=== PATIENT | female | born 1980 | race Caucasian/White ===

== ENCOUNTER 2023-02-26 12:01 | Emergency (ER) | payer OTHER, SELFPAY ==
[2023-02-26 12:05] VITALS: BP 118/66; PULSE 73; RESP 18; TEMP 36.4; O2SAT 100
--- NOTE | 2023-02-26 12:05 | ECG_ITS ---
Measurements Intervals [place] Rate: 72 P: 56 OK: 119 QRS: 47 QRSD: 108 T: 21 QT: 392 QTc: 432 Interpretive Statements SINUS RHYTHM WITH SHORT OK INTERVAL INCOMPLETE RIGHT BUNDLE BRANCH BLOCK BORDERLINE T WAVE ABNORMALITY- INFERIOR LEADS BASELINE ARTIFACT- I, II, V4-V6 BORDERLINE ECG NO PREVIOUS ECG AVAILABLE FOR COMPARISON Electronically Signed On 02-26-2023 12:50:14 ELECTRIC SERVICEMAN by Ricardo Fink D.O.
--- NOTE | 2023-02-26 12:41 | ED.GENADULT ---
HPI - General Adult General Chief complaint: Arrhythmia/Palpitations <Henna Vasquez June SHEET PILE DRIVER OPERATOR - Last Filed: 02/26/23 12:44> Stated complaint: irregular hr <Henna Vasquez June SHEET PILE DRIVER OPERATOR - Last Filed: 02/26/23 12:44> Time Seen by Provider: 02/26/23 16:16 <Henna Vasquez June SHEET PILE DRIVER OPERATOR - Last Filed: 02/26/23 12:44> History of Present Illness HPI narrative: Renee Almanzar is a 42 y/o female she sees Dr. De La Cruz for OB, hx of AFib at the end of the last three pregnancies, she is currently 20 weeks and reports of having symptoms of Afib that started Sunday and Sunday, with palpations/ shortness of breath and headache. Not on any daily medications. <Henna Vasquez June SHEET PILE DRIVER OPERATOR - Last Filed: 02/26/23 12:44> Renee Almanzar is a 42 y/o female she sees Dr. De La Cruz for OB, hx of AFib at the end of the last three pregnancies, she is currently 20 weeks and reports of having symptoms of Afib that started Sunday and Sunday, with palpations/ shortness of breath and headache. Not on any daily medications. She did have some coffee Sunday morning. No chest pain chest pressure. <Augustine Simmons MD - Last Filed: 02/26/23 17:39> Review of Systems Review of Systems: All systems reviewed & are unremarkable except as noted in HPI and below <Augustine Simmons MD - Last Filed: 02/26/23 17:39> Constitutional: Constitutional: Reports no additional constitutional complaints <Augustine Simmons MD - Last Filed: 02/26/23 17:39> ENT: Reports system reviewed and no additional complaints, except as documented <Augustine Simmons MD - Last Filed: 02/26/23 17:39> Cardiovascular: Cardiovascular: Denies chest pain, Reports rapid heart rate and Denies radiating jaw, neck or arm pain <Augustine Simmons MD - Last Filed: 02/26/23 17:39> Respiratory: Respiratory: Reports no additional respiratory complaints <Augustine Simmons MD - Last Filed: 02/26/23 17:39> Musculoskeletal: Musculoskeletal: Reports no additional musculoskeletal complaints <Augustine Simmons MD - Last Filed: 02/26/23 17:39> PMFSH Past Medical History Medical History: Medical History (Updated 02/26/23 @ 17:37 by Augustine Simmons MD) Atrial fibrillation related <Henna Hogan APRN - Last Filed: 02/26/23 12:44> Surgical History Surgical History: Surgical History (Updated 02/26/23 @ 17:37 by Augustine Simmons MD) No pertinent past surgical history <Henna Hogan APRN - Last Filed: 02/26/23 12:44> Exam Narrative: GENERAL: Well-appearing, well-nourished, and in no acute distress. HEAD: Normocephalic, atraumatic. ENT: Mucous membranes moist. CHEST: Clear to auscultation. No respiratory distress. HEART: Regular rate and rhythm. Normal peripheral pulses. EXTREMITIES: Normal range of motion. No edema. SKIN: Warm, dry, no rash. NEURO: Alert and oriented x3. PSYCH: Normal mood and affect. <Augustine Simmons MD - Last Filed: 02/26/23 17:39> Course Course Emergency Course: Patient informed of results. Discussed case with her OB. Recommend follow-up in 2 days or they can discuss possible referral for Holter monitoring or cardiology. Review of patient's apple watch shows PVCs. EKG here showed a normal sinus rhythm. Nonspecific elevation of white blood cell count. <Augustine Simmons MD - Last Filed: 02/26/23 17:39> Vital Signs Vital signs: Vital Signs Temperature 97.6 F 02/26/23 12:05 Pulse Rate 73 02/26/23 12:05 Respiratory Rate 18 02/26/23 12:05 Blood Pressure 118/66 02/26/23 12:05 Pulse Oximetry 100 02/26/23 12:05 Temperature 97.6 F 02/26/23 12:05 Pulse Rate 69 02/26/23 16:11 Respiratory Rate 16 02/26/23 16:11 Blood Pressure 134/81 02/26/23 16:11 Pulse Oximetry 100 02/26/23 16:11 <Henna Hogan APRN - Last Filed: 02/26/23 12:44> Vital Signs Temperature 97.6 F 02/26/23 12:05 Pulse Rate 73 02/26/23 12:05 Respiratory Rate 18 02/26/23 12
[2023-02-26 14:46] LABS: Basophils Absolute Auto 0.1 K/mm3 (0.0-0.1); Basophils Percent Auto 0.8 % (0.2-1.2); Eosinophils Absolute Auto 0.1 K/mm3 (0-0.3); Hematocrit 36.9 % (37.0-47.0); Hemoglobin 12.2 g/dL (12.0-15.0); Immature Granulocyte Absolute 0.45 K/mm3 (0.00-0.031); Immature Granulocyte Percent A 3.2 % (0-0.5); Lymphocytes Absolute Auto 1.89 K/mm3 (0.9-3.2); Lymphocytes Percent Auto 13.4 % (18.3-44.2); Mean Corpuscular HGB Conc 33.1 g/dl (32-36); Mean Corpuscular Hemoglobin 31.2 pg (26-34); Mean Corpuscular Volume 94.4 fl (80-100); Monocytes Percent Auto 6.9 % (2.6-8.5); Neutrophils Absolute Auto 10.6 K/mm3 (1.3-6.7); Neutrophils Percent Auto 74.7 % (45.5-73.1); Platelet Count Result 258 k/mm3 (150-375); Red Blood Count 3.91 M/mm3 (4.2-5.4); Red Cell Distribution Width 13.4 % (11.5-14.5); White Blood Count 14.1 K/mm3 (4.5-10.0)
[2023-02-26 14:47] LABS: Appearance Urine Clear (Clear); Bilirubin Urine Negative (Negative); Blood Urine Negative (Negative); Color Urine Yellow (Yellow); Glucose Urine UA Negative (Negative); Ketones Urine Negative (Negative); Leukocyte Esterase Ur Negative LEU/UL (Negative); Nitrate Urine Negative (Negative); Protein Urine Negative (Negative); Urobilinogen Urine 0.2 mg/dL (<2.0); pH Urine 7.5 (5.0-9.0)
[2023-02-26 14:56] LABS: Add Urine Microscopic? NO
[2023-02-26 14:58] LABS: Alanine Aminotransferase 14 U/L (6-35); Albumin Level 3.6 g/dL (3.5-5.1); Alkaline Phosphatase 87 U/L (38-126); Anion Gap 7 mmol/L (8-16); Aspartate Amino Transferase 16 U/L (14-36); Bilirubin,Total 0.3 mg/dL (0.2-1.3); Blood Urea Nitrogen 5 mg/dL (7-17); Calcium 8.4 mg/dL (8.4-10.2); Carbon Dioxide 24 mmol/L (22-30); Chloride 105 mmol/L (98-107); Estimated CRCL calculation 103 ml/min; Estimated Glomerular Filt Rate > 60; Glucose 89 mg/dL (65-110); Potassium 3.7 mmol/L (3.4-5.0); Sodium 136 mmol/L (137-145)
[2023-02-26 15:10] LABS: Troponin I < 0.012 ng/mL (0.000-0.034)
[2023-02-26 16:11] VITALS: BP 134/81; PULSE 69; RESP 16; O2SAT 100
[2023-02-26 18:05] VITALS: BP 113/71; PULSE 80; RESP 18; O2SAT 100
== END 2023-02-26 18:06 | disposition home or self-care (01) ==
PROVIDERS: Nurse Practitioner Family; Emergency Provider Emergency Medicine; PCP Obstetrics & Gynecology
DX: O99.412 Diseases of the circulatory system complicating pregnancy, second trimester (principal); I49.3 Ventricular premature depolarization; Z3A.20 20 weeks gestation of pregnancy; I45.10 Unspecified right bundle-branch block; R94.31 Abnormal electrocardiogram [ECG] [EKG]
CPT/HCPCS: 36415; 80053; 81003; 84484; 85025; 93005; 99284

== ENCOUNTER 2023-07-12 03:30 | Inpatient (IN) | payer OTHER, SELFPAY ==
[2023-07-12] VITALS (41 sets, daily range): BP systolic 99–154; BP diastolic 37–96; PULSE 64–137; RESP 16–18; TEMP 36.7–37.1; O2SAT 92–100; BMI 32.8; BMI 32.4
[2023-07-12 04:06] LABS: Basophils Absolute Auto 0.1 K/mm3 (0.0-0.1); Basophils Percent Auto 0.8 % (0.2-1.2); Eosinophils Absolute Auto 0.2 K/mm3 (0-0.3); Eosinophils Percent Auto 1.2 % (0-4.4); Hematocrit 35.3 % (37.0-47.0); Hemoglobin 11.3 g/dL (12.0-15.0); Immature Granulocyte Absolute 0.57 K/mm3 (0.00-0.031); Immature Granulocyte Percent A 3.7 % (0-0.5); Lymphocytes Absolute Auto 1.82 K/mm3 (0.9-3.2); Lymphocytes Percent Auto 11.9 % (18.3-44.2); Mean Corpuscular Hemoglobin 28.7 pg (26-34); Mean Corpuscular Volume 89.6 fl (80-100); Mean Platelet Volume 11.8 fl (7.4-10.4); Monocytes Absolute Auto 1.1 K/mm3 (0.1-0.6); Monocytes Percent Auto 7.3 % (2.6-8.5); Neutrophils Absolute Auto 11.5 K/mm3 (1.3-6.7); Neutrophils Percent Auto 75.1 % (45.5-73.1); Platelet Count Result 201 k/mm3 (150-375); Red Blood Count 3.94 M/mm3 (4.2-5.4); Red Cell Distribution Width 14.2 % (11.5-14.5); White Blood Count 15.3 K/mm3 (4.5-10.0)
--- NOTE | 2023-07-12 04:06 | LDADM ---
This patient, Renee Almanzar, was admitted to Labor/Delivery/Recovery 106 on 07/12/23 at 03:30. Plans for labor, pain management and were discussed with patient. Patient/family oriented to hospital policies and general routines including ID bracelet, bed and alarms, visiting hours, pain management, procedures, bathroom and other care routines, personal items, smoking policy, room service/diet and guest tray routines, security routines, and visiting hours. Patient/Family are encouraged to report perceived risks to care and to ask questions if they do not understand what they are told or what they should do. See OBIX for further documentation.
--- NOTE | 2023-07-12 04:12 | WPDANESEPP ---
Anes - Eval Pre Procedure Procedure: labor epidural Date/Time: 07/12/23 04:12 Surgeon: lauren Preop Diagnosis: pain during labor Pre Op Diagnosis: IOL Patient Data Age: 42 Gender: F Height: 1.7 m Weight: 94 kg Last Vital Signs O2 Del Method Room Air 07/12/23 04:07 Allergies Allergy/AdvReac Type Severity Reaction Status Date / Time No Known Allergies Allergy Verified 07/12/23 04:08 Home Medications Medication Instructions Recorded Confirmed Type vits no.126-ferrous fum 1 tablet PO DAILY 07/12/23 07/12/23 History 28 mg iron-folic acid 800 mcg tablet (Classic ) Laboratory Tests 07/12/23 03:56 WBC 15.3 H K/mm3 (4.5-10.0) RBC 3.94 L M/mm3 (4.2-5.4) Hgb 11.3 L g/dL (12.0-15.0) Hct 35.3 L % (37.0-47.0) MCV 89.6 fl (80-100) MCH 28.7 pg (26-34) MCHC 32.0 g/dl (32-36) RDW 14.2 % (11.5-14.5) Plt Count 201 k/mm3 (150-375) MPV 11.8 H fl (7.4-10.4) Immature Gran % (Auto) 3.7 H % (0-0.5) Neut % (Auto) 75.1 H % (45.5-73.1) Lymph % (Auto) 11.9 L % (18.3-44.2) [place] % (Auto) 7.3 % (2.6-8.5) Eos % (Auto) 1.2 % (0-4.4) Baso % (Auto) 0.8 % (0.2-1.2) Lymph # (Auto) 1.82 K/mm3 (0.9-3.2) [place] # (Auto) 1.1 H K/mm3 (0.1-0.6) Eos # (Auto) 0.2 K/mm3 (0-0.3) Baso # (Auto) 0.1 K/mm3 (0.0-0.1) Abs Immat Gran (auto) 0.57 H K/mm3 (0.00-0.031) Absolute Neuts (auto) 11.5 H K/mm3 (1.3-6.7) Absolute Nucleated RBC 0.000 K/mm3 (0.0-0.012) Nucleated RBC % 0.0 % (0.0-0.2) RPR Pending HIV 1&2 Ab/P24 Ag 4thGn Pending Patient hx anesthesia problems: none Family hx anesthesia problems: none Results Review: All pre-operative results and documents have been reviewed as part of the pre-operative evaluation. [facility], [facility] Past Medical History Medical History (Updated 07/12/23 @ 04:12 by Lianne Torres CRNA) Atrial fibrillation related IUP (intrauterine ), incidental Surgical History Surgical History (Updated 02/26/23 @ 17:37 by Augustine Simmons MD) No pertinent past surgical history Family History Family History (Updated 06/25/23 @ 13:42 by Hien John RN) Father Lung cancer Social History Social History Smoking status: Former smoker Smoking end date: 02/19/13 Substance use: never Do You Feel Safe in your Home?: Yes Lack of Transportation: No Lack of Food: Sometimes True Current Housing: I Have Housing Concerned About Future Housing: No Difficulty Paying Gas/Electric Bills: No Difficulty Paying for Meds: No Currently Unemployed: No Education: High School Diploma/GED Difficulty w/ Childcare or Family Care: No Spiritual care concerns: No Exam Day of Procedure 07/12/23 04:12
[2023-07-12] MEDS: LACTATED RINGERS 1,000 ML 125 ML IV CONT ×2 (04:30→04:52)
[2023-07-12] MEDS: OXYTOCIN 30 UNITS/NS 500 ML 30 UNITS/500 ML BAG 999 UNITS IV CONT (04:53)
[2023-07-12 04:59] LABS: HIV 1/2 Ab P24 Ag Result Negative (Negative)
--- NOTE | 2023-07-12 05:12 | PM.IMHP ---
H&P: HPI History of Present Illness Date/Time: 07/12/23 05:12 Chief Complaint: Term labor Narrative: 6-year-old 4 para 3 admitted in active labor with an EDC of 07/21/2023 making 8 weeks gestation PMFSH Past Medical History Medical History Atrial fibrillation related IUP (intrauterine ), incidental Surgical History Surgical History No pertinent past surgical history Family History Family History Father Lung cancer Social History Social History Smoking status: Former smoker Smoking end date: 02/19/13 Substance use: never Do You Feel Safe in your Home?: Yes Lack of Transportation: No Lack of Food: Sometimes True Current Housing: I Have Housing Concerned About Future Housing: No Difficulty Paying Gas/Electric Bills: No Difficulty Paying for Meds: No Currently Unemployed: No Education: High School Diploma/GED Difficulty w/ Childcare or Family Care: No Spiritual care concerns: No Meds Home Medications and Allergies Home Medications Medication Instructions Recorded Confirmed Type vits no.126-ferrous fum 1 tablet PO DAILY 07/12/23 07/12/23 History 28 mg iron-folic acid 800 mcg tablet (Classic ) Allergies Allergy/AdvReac Type Severity Reaction Status Date / Time No Known Allergies Allergy Verified 07/12/23 04:08 Vital Signs Vital Signs - 24 hr 07/12/23 04:07 07/12/23 04:12 07/12/23 04:15 Pulse Rate 80 85 Blood Pressure 138/72 137/76 Pulse Oximetry Oxygen Delivery Room Air 07/12/23 04:25 07/12/23 04:27 07/12/23 04:28 Pulse Rate 74 81 78 Blood Pressure 154/81 H 141/82 H 154/89 H Pulse Oximetry 92 Oxygen Delivery 07/12/23 04:30 07/12/23 04:34 07/12/23 04:35 Pulse Rate 76 79 74 Blood Pressure 142/82 H 134/65 133/63 Pulse Oximetry 99 98 Oxygen Delivery 07/12/23 04:38 07/12/23 04:40 07/12/23 04:41 Pulse Rate 90 92 Blood Pressure 138/58 L 129/54 L Pulse Oximetry 99 Oxygen Delivery 07/12/23 04:43 07/12/23 04:45 07/12/23 04:49 Pulse Rate 97 137 H 109 H Blood Pressure 132/58 L 147/63 H 99/79 L Pulse Oximetry 98 Oxygen Delivery 07/12/23 04:50 07/12/23 04:51 07/12/23 04:53 Pulse Rate 110 H 117 H Blood Pressure 133/69 121/65 Pulse Oximetry 100 Oxygen Delivery 07/12/23 04:55 07/12/23 04:58 07/12/23 05:00 Pulse Rate 112 H 102 H Blood Pressure 129/74 125/96 H Pulse Oximetry 99 100 Oxygen Delivery 07/12/23 05:01 07/12/23 05:02 07/12/23 05:05 Pulse Rate 92 85 Blood Pressure 110/37 L 104/43 L Pulse Oximetry 100 Oxygen Delivery 07/12/23 05:06 07/12/23 05:08 07/12/23 05:09 Pulse Rate 76 82 88 Blood Pressure 120/61 135/64 138/64 Pulse Oximetry Oxygen Delivery 07/12/23 05:10 Pulse Rate Blood Pressure Pulse Oximetry 99 Oxygen Delivery Exam Const: General: cooperative, healthy appearing and comfortable Nutritional Appearance: average body habitus Orientation/consciousness: oriented to person, oriented to place and oriented to time HENMT: Head: normal to inspection Resp: Effort & Inspection: normal respiratory effort Cardio: Rate: regular rate Rhythm: regular rhythm Heart sounds: S1 normal heart sound present and S2 normal heart sound present GI: Inspection: normal to inspection : Speculum Exam - Vagina: normal appearance of the vagina Speculum Exam - Cervix: normal appearance of the cervix ( 8/100% with bulging bag water FHTs reassuring) H&P: Results Labs Labs: Short CBC 07/12/23 Range/Units 03:56 WBC 15.3 H (4.5-10.0) K/mm3 Hgb 11.3 L (12.0-15.0) g/dL Hct 35.3 L (37.0-47.0) % Plt Count 201 (150-375) k/mm3 Assessment and Pl
--- NOTE | 2023-07-12 05:45 | PM.OBPRVD ---
OB - Vaginal Delivery Note Procedure Delivery date: 07/12/23 Induction method: None Delivery monitor: External FHT and External Uterine Route of delivery: Episiotomy description: None Laceration Description: None Specimen: No Quantitative Blood Loss (ml): 61 Anesthesia type: Epidural Disposition: Floor Complications: No immediate complications Baby Date of : 07/12/23 Time of : 05:31 Weeks of gestation at delivery: 38 gender: Male Weight (pounds): 8 Weight (ounces): 7 presentation: vertex position: Right Occiput Anterior Placenta delivery description: Spontaneous Cord Vessel Description: 3 Vessels score one minute: 7 score five minutes: 9
[2023-07-12] MEDS: OXYTOCIN 30 UNITS/NS 500 ML 30 UNITS/500 ML BAG 125 UNITS IV CONT (06:06)
[2023-07-12] MEDS: COSYNTROPIN 0.25 MG/ML VIAL 1 MG IV PUSH (07:27)
[2023-07-12] MEDS: ACETAMINOPHEN 325 MG TABLET 650 MG PO (09:32)
[2023-07-12] MEDS: MULTIVIT/MIN/PREN/FOL AC/IRON TABLET 1 TAB PO (09:32)
--- NOTE | 2023-07-12 12:20 | PC.NURSE ---
Patient transferred to post room #278 via wheelchair. Support person present. Oriented to unit, room, information board, rooming in, admission packet and security measures. Patient verbalizes understanding.
--- NOTE | 2023-07-12 15:21 | PC.NURSE ---
1504 - Introductions were made, then consulted with patient to assess needs related to . Discussed with mother her?plans to feed?her infant and the?experience so far. Resources provided for inpatient with RN LC name written on the communication board. Mother voiced understanding of information and will call if there is a request for assistance.
[2023-07-12 18:06] LABS: Rapid Plasma Reagin Non-Reactive (NonReactive)
--- NOTE | 2023-07-12 19:16 | P.DS_ITS ---
DS: Admitting Diagnosis Discharge Date 07/14/2023 Admitting Diagnosis term /desires permanent sterilization DS: Discharge Diagnosis Discharge Diagnosis (1) IUP (intrauterine ), incidental: Code(s): Z33.1 - state, incidental Status: Acute (2) Sterilization: Code(s): Z30.2 - Encounter for sterilization Status: Acute DS: Summary Hospital Course Reason for hospitalization: patient was admitted at term in active labor Hospital Course: patient underwent spontaneous vaginal delivery on 07/12/2023. Day stay on 07/13/2023 she had a tubal ligation. Hospital course unremarkable. She remained afebrile. She was up, voiding without difficulty eating ambulating, and generally without complaints. Time Spent with Patient Time attestation: Total time spent providing and/or coordinating discharge services: Exam Const: General: cooperative, healthy appearing and comfortable Nutritional Appearance: average body habitus Orientation/consciousness: oriented to person, oriented to place and oriented to time HENMT: Head: normal to inspection Resp: Effort & Inspection: normal respiratory effort Cardio: Rate: regular rate Rhythm: regular rhythm Heart sounds: S1 normal heart sound present and S2 normal heart sound present GI: Inspection: normal to inspection DS: Data Data Completed and Pending Labs on day of discharge: Labs from last 24 hours 07/12/23 03:56 WBC 15.3 H RBC 3.94 L Hgb 11.3 L Hct 35.3 L MCV 89.6 MCH 28.7 MCHC 32.0 RDW 14.2 Plt Count 201 MPV 11.8 H Immature Gran % (Auto) 3.7 H Neut % (Auto) 75.1 H Lymph % (Auto) 11.9 L [place] % (Auto) 7.3 Eos % (Auto) 1.2 Baso % (Auto) 0.8 Lymph # (Auto) 1.82 [place] # (Auto) 1.1 H Eos # (Auto) 0.2 Baso # (Auto) 0.1 Abs Immat Gran (auto) 0.57 H Absolute Neuts (auto) 11.5 H Absolute Nucleated RBC 0.000 Nucleated RBC % 0.0 RPR Non-reactive HIV 1&2 Ab/P24 Ag 4thGn Negative Blood Type O Positive Antibody Screen Negative Discharge Plan Discharge Attending physician on discharge: Hussain Claros Discharging Clinician: Dalla Sue,Hussain J. Patient Disposition: Home, Self-Care Activity: may shower and pelvic rest Diet: heart healthy Wound Care Instructions: follow printed instructions Patient Instructions: Antibiotic Form Stand Alone Forms: General Discharge Information Follow-up/Referrals: Asad De La Cruz MD [Physician] - Discharge Medications: New hydrocodone-acetaminophen 5-325 mg tablet 1 tablet PO Q4H PRN (Reason: pain) Qty: 20 0RF Continued Classic 28 mg iron- 800 mcg Tablet 1 tablet PO DAILY Date of admission: 07/12/23 03:30 Primary Care Provider: UNKNOWN,DOCTOR Admitting Provider: Asad De La Cruz Attending physician on admission: Asad De La Cruz Condition: Stable
--- NOTE | 2023-07-12 19:45 | PC.NURSE ---
Epidural intact for procedure in the am
[2023-07-12] MEDS: IBUPROFEN 600 MG TABLET PO (22:10)
[2023-07-13] VITALS (13 sets, daily range): BP systolic 105–128; BP diastolic 49–79; PULSE 64–77; RESP 16–20; TEMP 36.3–37.1; O2SAT 95–100
--- NOTE | 2023-07-13 06:51 | WPDHPUPDATE1 ---
History and Physical Update Update Date/Time: 07/13/23 06:51 History and Physical has been reviewed, including an updated exam of the patient. There are NO changes in the patient's condition. Risks, benefits, and alternatives have been discussed and questions answered. Patient agrees to proceed with procedure.
--- NOTE | 2023-07-13 07:07 | PM.OBPNVD ---
OB - PN: Subj Subjective Date/time seen: 07/13/23 07:07 Patient comments: no complaints and pain well controlled baby status: doing well and nursing well OB - PN: Obj Data Labs 07/12/23 03:56 Labs: Laboratory Results - last 24 hr 07/12/23 03:56 RPR Non-reactive OB - PN A/P Plan day: 1 Plan: routine care Comments: proceed with pp btl Time Spent With Patient Time: Total time spent is greater than 50% in coordination of care (as documented) at patient's floor/unit and/or counseling patient: Time with patient: less than 15 minutes Exam Const: General: cooperative, healthy appearing and comfortable Nutritional Appearance: average body habitus Orientation/consciousness: oriented to person, oriented to place and oriented to time HENMT: Head: normal to inspection Resp: Effort & Inspection: normal respiratory effort Cardio: Rate: regular rate Rhythm: regular rhythm Heart sounds: S1 normal heart sound present and S2 normal heart sound present GI: Inspection: normal to inspection
[2023-07-13 07:31] LABS: Hematocrit 32.1 % (37.0-47.0); Hemoglobin 10.3 g/dL (12.0-15.0)
--- NOTE | 2023-07-13 09:58 | WPDANESEPPF ---
Anes - Initial Pre Proc Eval Procedure: Operation Date: 07/13/23 11:00 Proposed Procedures p Post- Tubal Ligation - Hussain Rogers MD Date/Time: 07/13/23 09:58 Surgeon: Asad De La Cruz MD Pre Op Diagnosis: IOL Patient Data Age: 42 Gender: F Height: 1.7 m Weight: 94 kg Last Vital Signs Temp 98.7 F 07/13/23 07:30 Pulse 65 07/13/23 07:30 Resp 16 07/13/23 07:30 BP 127/70 07/13/23 07:30 Pulse Ox 99 07/13/23 07:30 O2 Del Method Room Air 07/12/23 19:45 Allergies Allergy/AdvReac Type Severity Reaction Status Date / Time No Known Allergies Allergy Verified 07/12/23 04:08 Home Medications Medication Instructions Recorded Confirmed Type hydrocodone 5 mg-acetaminophen 325 1 tablet PO Q4H PRN pain #20 tabs 07/12/23 Rx mg tablet vits no.126-ferrous fum 1 tablet PO DAILY 07/12/23 07/12/23 History 28 mg iron-folic acid 800 mcg tablet (Classic ) Laboratory Tests 07/12/23 07/13/23 03:56 07:25 Hgb 10.3 L g/dL (12.0-15.0) Hct 32.1 L % (37.0-47.0) RPR Non-reactive (NonReactive) Patient hx anesthesia problems: none Family hx anesthesia problems: none Results Review: All pre-operative results and documents have been reviewed as part of the pre-operative evaluation. [facility] Past Medical History Medical History Atrial fibrillation related IUP (intrauterine ), incidental Surgical History Surgical History No pertinent past surgical history Family History Family History Father Lung cancer Social History Social History Smoking status: Former smoker Smoking end date: 02/19/13 Substance use: never Do You Feel Safe in your Home?: Yes Lack of Transportation: No Lack of Food: Sometimes True Current Housing: I Have Housing Concerned About Future Housing: No Difficulty Paying Gas/Electric Bills: No Difficulty Paying for Meds: No Currently Unemployed: No Education: High School Diploma/GED Difficulty w/ Childcare or Family Care: No Spiritual care concerns: No Anes - Eval Final PreProcedure Day of Procedure 07/13/23 09:58 Patient weight: obese Heart: regular rate and rhythm Lungs: clear to auscultation Airway: Mallampati scale class II Neurological: alert and oriented Last oral intake: >/= 8 hours ASA classification: II Emergent: no Anesthetic plan: proceed Anesthesia type and monitoring: regional epidural and standard monitoring Results Review: All pre-operative results and documents have been reviewed as part of the pre-operative evaluation. Pt w existing epidural still in place. Discussed w pt that we can plan to dose epidural to get adequate level for surgical anesthesia. If not functional, will plan GA as backup. Informed Consent: The patient's anesthetic plan and its attendant risks and benefits were discussed with the patient/family/POA. Questions were solicited and answers provided to the satisfaction of the patient/family/POA.
[2023-07-13] MEDS: LACTATED RINGERS 1,000 ML 30 ML IV CONT (10:00)
[2023-07-13] MEDS: LIDOCAINE 1% BUFFERED WITH 8.4% SODIUM BICARB 1 ML SYRINGE 20 ML INFILTRATE (10:40)
--- NOTE | 2023-07-13 10:51 | W.PM.PROC2 ---
Procedure Note - Detailed Date of Procedure 07/13/23 Pre-op Diagnosis sterilization Post-op Diagnosis Same Procedure Performed bilateral tubal ligation via modified Santiago method Surgeon Hussain Rogers MD Anesthesia Epidural Indications this is a 42-year-old 4 para 4 day 1 who desires permanent sterilization Findings size uterus. Normal-appearing tubes and ovaries Description of Procedure patient was prepped draped in the normal sterile fashion placed in the supine position. Excellent anesthesia the abdomen was was instilled with 8cc 1% xylocaine anesthesia below the umbilicus. This is a progressive layers to the fascia. The fascia was incised peritoneum entered by sharp dissection the. The left fallopian tube was visualized grasped at its midportion traversed to the fimbriated in this was read traverse to the midportion and a good knuckle of tube formed with open chromic. Peritoneum piercing between in the distal and proximal legs were both free tied with 0 portion between cut passed off as portion of left fallopian tube. In similar fashion the right fallopian tube was grasped was midportion traversed to its fimbriated end and back to the midportion to assure this was tube. A good knuckle of tube formed and free tied with 0 chromic the peritoneum between free tied with 0 chromic on the distal and proximal portions. This was then cut and passed off as portion of right fallopian tube hemostasis was assured and the tube returned to the abdomen. The laps removed and accounted for. The fascia closed with continuous running 0 Vicryl from lateral edge to lateral edge the skin closed with 4 Monocryl and glue. Patient went recovery in satisfactory condition. All sponge, needle, instrument counts were correct. There were no immediate complications Estimated Blood Loss 5 Drains No Packing No Pathology Yes Complications No immediate complications Condition Stable Disposition PACU
[2023-07-13] MEDS: ACETAMINOPHEN 325 MG TABLET 650 MG PO (12:46)
[2023-07-13] MEDS: IBUPROFEN 600 MG TABLET PO ×2 (12:46→20:50)
--- NOTE | 2023-07-13 13:19 | WPDANLDPN2 ---
Anes-Prog Note L&D Date/Time: 07/13/23 13:19 Comfortable throughout: labor and delivery Neuraxial method: epidural Epidural/Spinal procedure site: clean & non-tender Neuro status: Neuro function grossly intact. Cardiovascular status: normal Respiratory status: normal Airway patency: baseline Mental status: baseline Post-Op hydration status: normal Vital Signs: Last Vital Signs Temp 97.7 F 07/13/23 12:35 Pulse 64 07/13/23 12:35 Resp 16 07/13/23 12:35 BP 105/75 07/13/23 12:35 Pulse Ox 100 07/13/23 12:35 O2 Del Method Room Air 07/13/23 12:14 Pain score (VAS): 0/10 I/O: Intake & Output 07/12/23 07/13/23 07/13/23 23:59 07:59 15:59 Intake Total 400 Balance 400 Post-procedural complaints: none Patient feedback: Patient satisfied with anesthetic care.
--- NOTE | 2023-07-13 15:27 | PC.NURSE ---
[id number] Consulted with mother concerning needs and she shared her ability to independently latch optimally without pain. Mother is feeding appropriately for growth of infant and understands stimulating infant to eat if needed. Infant has had appropriate feedings in the last 24 hours meets the outcomes for weight, output, blood sugar and jaundice at this time. Reinforced understanding of milk production, transition of milk, signs of adequate intake, transition of stool, prevention/relief of engorgement, plugged ducts, mastitis, responsive watching for feeding cues, the different methods of stimulating to breastfeed 1-3 hours after the start of the last feeding, community resources, and when to call a provider using the resource of the feeding sheet along with the mom and baby guide. Mother voiced understanding of the information shared, is confident to continue effectively her at home, when to call for assistance, denies any additional assistance or education at this time. Reported to the Primary RN.
[2023-07-13] MEDS: TETANUS,DIPHTHERIA,AC PERTUSSIS ADULT (0.5 ML) BOOSTRIX IM (16:23)
[2023-07-13] MEDS: SIMETHICONE 80 MG TAB.CHEW PO (16:24)
[2023-07-13] MEDS: DOCUSATE SODIUM 100 MG CAPSULE PO (16:24)
[2023-07-13] MEDS: HYDROcodone/acetaminophen (*CRX) 5-325 MG TABLET 1 TAB PO ×2 (16:25→20:50)
[2023-07-14] MEDS: HYDROcodone/acetaminophen (*CRX) 5-325 MG TABLET 1 TAB PO ×2 (05:06→09:51)
[2023-07-14] MEDS: IBUPROFEN 600 MG TABLET PO (05:06)
[2023-07-14 06:23] LABS: Hematocrit 33.3 % (37.0-47.0); Hemoglobin 10.4 g/dL (12.0-15.0)
--- NOTE | 2023-07-14 07:38 | PM.OBPNVD ---
OB - PN: Subj Subjective Date/time seen: 07/14/23 07:38 Patient comments: no complaints, pain well controlled and incisional pain [place] baby status: doing well OB - PN: Obj Data Labs 07/14/23 05:17 Labs: Laboratory Results - last 24 hr 07/14/23 05:17 Hgb 10.4 L Hct 33.3 L OB - PN A/P Plan day: 2 Plan: routine care, discharge home and follow up 6 weeks Time Spent With Patient Time: Total time spent is greater than 50% in coordination of care (as documented) at patient's floor/unit and/or counseling patient: Time with patient: less than 15 minutes Exam Const: General: cooperative, healthy appearing and comfortable Nutritional Appearance: average body habitus Orientation/consciousness: oriented to person, oriented to place and oriented to time Resp: Effort & Inspection: normal respiratory effort Cardio: Rate: regular rate Rhythm: regular rhythm Heart sounds: S1 normal heart sound present and S2 normal heart sound present GI: Inspection: normal to inspection and incision ( wound clean dry and intact)
[2023-07-14 08:00] VITALS: BP 120/69; PULSE 72; RESP 16; TEMP 36.3; O2SAT 99
[2023-07-14] MEDS: MULTIVIT/MIN/PREN/FOL AC/IRON TABLET 1 TAB PO ×2 (08:49→08:50)
[2023-07-14] MEDS: SIMETHICONE 80 MG TAB.CHEW PO (08:50)
[2023-07-14] MEDS: DOCUSATE SODIUM 100 MG CAPSULE PO (08:50)
[2023-07-14] MEDS: LANOLIN (LANSINOH) 7.5 GM CREAM 1 APPLIC TOPICAL (08:50)
--- NOTE | 2023-07-14 09:00 | PC.NURSE ---
Patient viewed the discharge video Mother & Baby Care, The First Two Weeks . Patient was given the opportunity and encouraged to ask questions. Patient verbalized understanding of information shared and has been given the mother/baby guide for home reference.
[2023-07-17 09:14] VITALS: BP 142/84; PULSE 63; RESP 18; TEMP 36.7; O2SAT 100
== END 2023-07-14 11:20 | disposition home or self-care (01) | DRG 541 ==
LOC: ANHLDR 06:17 → ANHOB2 19:19 → ANHLDR 07-18 06:03 → ANHOB2 07-18 06:03
PROVIDERS: Admitting Provider Obstetrics & Gynecology; Visit Provider Obstetrics & Gynecology
PROC: 0UB70ZZ Excision of Bilateral Fallopian Tubes, Open Approach (ICD-10-PCS; CPT 58605; principal; 2023-07-13 11:00)
DX: O62.3 Precipitate labor (principal); O77.0 Labor and delivery complicated by meconium in amniotic fluid; Z87.891 Personal history of nicotine dependence; Z30.2 Encounter for sterilization; Z3A.38 38 weeks gestation of pregnancy; Z37.0 Single live birth
CPT/HCPCS: 36415; 85014; 85018; 85025; 86592; 86703; 86850; 86900; 86901; 88302; 90715; A9270; G0432; J0834; J2250; J2590; J3010; J7120

== ENCOUNTER 2023-07-17 09:30 | Outpatient (CLI) | payer OTHER, SELFPAY ==
[2023-07-17 09:59] VITALS: BP 134/76; PULSE 65
[2023-07-17 10:00] VITALS: BP 134/75; PULSE 62
[2023-07-17 10:07] LABS: Basophils Absolute Auto 0.1 K/mm3 (0.0-0.1); Basophils Percent Auto 0.8 % (0.2-1.2); Eosinophils Absolute Auto 0.3 K/mm3 (0-0.3); Eosinophils Percent Auto 2.9 % (0-4.4); Hematocrit 32.5 % (37.0-47.0); Hemoglobin 10.4 g/dL (12.0-15.0); Immature Granulocyte Absolute 0.57 K/mm3 (0.00-0.031); Immature Granulocyte Percent A 5.7 % (0-0.5); Lymphocytes Absolute Auto 1.23 K/mm3 (0.9-3.2); Lymphocytes Percent Auto 12.3 % (18.3-44.2); Mean Corpuscular Hemoglobin 28.8 pg (26-34); Mean Platelet Volume 10.9 fl (7.4-10.4); Monocytes Absolute Auto 0.8 K/mm3 (0.1-0.6); Monocytes Percent Auto 7.5 % (2.6-8.5); Neutrophils Absolute Auto 7.1 K/mm3 (1.3-6.7); Neutrophils Percent Auto 70.8 % (45.5-73.1); Platelet Count Result 260 k/mm3 (150-375); Red Blood Count 3.61 M/mm3 (4.2-5.4); Red Cell Distribution Width 14.1 % (11.5-14.5)
[2023-07-17 10:15] VITALS: BP 125/74; PULSE 61
[2023-07-17 10:17] LABS: Alanine Aminotransferase 37 U/L (6-35); Albumin Level 3.4 g/dL (3.5-5.1); Alkaline Phosphatase 138 U/L (38-126); Anion Gap 4 mmol/L (4-12); Aspartate Amino Transferase 25 U/L (14-36); Bilirubin,Total 0.4 mg/dL (0.2-1.3); Blood Urea Nitrogen 8 mg/dL (7-17); Calcium 8.5 mg/dL (8.4-10.2); Carbon Dioxide 23 mmol/L (22-30); Chloride 109 mmol/L (98-107); Estimated Glomerular Filt Rate > 60; Glucose 90 mg/dL (65-110); Potassium 3.9 mmol/L (3.4-5.0); Sodium 136 mmol/L (137-145); Uric Acid 4.7 mg/dL (2.5-7.5)
[2023-07-17 10:30] VITALS: BP 131/75; PULSE 63
[2023-07-17 10:34] LABS: Anisocytosis 1+; Platelet Estimate Adequate (Adequate); Schistocytes None Seen
[2023-07-17 10:45] VITALS: BP 144/69; PULSE 56
[2023-07-17 11:00] VITALS: BP 140/70; PULSE 60
--- NOTE | 2023-07-17 11:16 | PC.NURSE ---
Reported labs and BP's to Dr. De La Cruz. Pt reports headache to be a bit less painful. Fioricet script called to pharmacy.
== END 2023-07-17 11:22 | disposition home or self-care (01) ==
LOC: ANHOBOP 09:40 → ANHOBPP 09:43
PROVIDERS: Visit Provider Obstetrics & Gynecology
DX: O13.9 Gestational [pregnancy-induced] hypertension without significant proteinuria, unspecified trimester (principal); Z3A.00 Weeks of gestation of pregnancy not specified
CPT/HCPCS: 36415; 80053; 84550; 85025; 99199

== ENCOUNTER 2023-07-19 14:31 | Outpatient (CLI) | payer OTHER, SELFPAY ==
[2023-07-19 14:56] VITALS: BP 129/73; PULSE 70
--- NOTE | 2023-07-19 17:56 | WPDANESEBPP ---
Anes - Epidural Blood Patch PN Date/Time: 07/19/23 17:56 Consent: I have discussed with the patient/family/POA, the rationale of a lumbar epidural autologous blood patch for the treatment of post-dural puncture headache (spinal headache), including associated potential risks, benefits, complications and side effects. I have also discussed more conservative treatment options such as intravenous hydration, caffeine and non-prescription analgesics. The patient/family/POA, understand(s) and wish(es) NOT to proceed with epidural autologous blood patch as treatment for the patient's post-dural puncture headache. Since the pt is one week out today, she has agreed to wait and see if it self resolves in the next couple of days. We instructed her to continue using the PO medication prescribed by Dr Howard office and also informed her that if she is still having pain or symptoms on Sunday to contact Dr De La Cruz's office for referral back to the hospital for further follow up. Time-Out: NA Clinical Indications: Pt reported symptoms inconsistent with an PDPH. Pt was in the room in bed with HOB at approx 60 degrees with the lights on and window shades open. The television was also on (low) at that time. She indicated that upon standing up she would get a frontal/mid scalp PATEL, however no nuchal rigidity or photophobia were present. Since pt is at one week out already, we spoke to pt about conservative treatment at this time.
--- NOTE | 2023-07-19 18:17 | PC.NURSE ---
Per anesthesiologist, blood patch will not be performed today due to pt not presenting like a spinal headache. Instructions given per anesthesiology to continue hydration, caffeine and analgesics. Continue use of medication prescribed by Dr. De La Cruz. Pt will re-evaluate on Sunday and contact Dr. De La Cruz for further treatment.
== END 2023-07-19 18:21 | disposition home or self-care (01) ==
LOC: ANHOBOP 14:35 → ANHOBPP 14:35
PROVIDERS: Visit Provider Obstetrics & Gynecology
DX: O13.9 Gestational [pregnancy-induced] hypertension without significant proteinuria, unspecified trimester (principal)
CPT/HCPCS: 99199